=== PATIENT | male | born 1960 | race Caucasian/White ===

== ENCOUNTER 2016-09-01 15:47 | Emergency (ER) ==
[2016-09-01 16:00] VITALS: BP 144/81
[2016-09-01] MEDS ORDERED: ASPIRIN PO STA (16:12)
[2016-09-01] MEDS ORDERED: NS 1,000 ML IV ONE (16:14)
[2016-09-01] MEDS ORDERED: ASPIRIN EC ONE (16:20)
[2016-09-01 16:26] LABS: MANUAL DIFF NEEDED? NO
--- NOTE | 2016-09-01 16:29 | EKG Report ---
Test Performed on : 09/01/2016 4:17:04 PM Test Reason : CP Blood Pressure : / mmHG Vent. Rate : 081 BPM Atrial Rate : 081 BPM P-R Int : 140 ms QRS Dur : 096 ms QT Int : 378 ms P-R-T Axes : 047 073 066 degrees QTc Int : 439 ms Normal sinus rhythm. Normal ECG When compared with ECG of 08-APR-2014 09:46, No significant change was found Unconfirmed Result
[2016-09-01 16:34] LABS: BASO% 0.3 % (0.0-0.8); EOS# 0.09 X1000 (0.0-0.7); EOS% 1.4 % (0.0-10.0); HEMATOCRIT 40.8 % (42.0-52.0); HEMOGLOBIN 13.4 g/dL (14.0-18.0); IMM GRAN# 0.03 X1000 (0.0-0.04); IMM GRAN% 0.5 % (0.0-0.5); LYMPH# 1.38 X1000 (1.2-3.4); LYMPH% 21.3 % (20.5-51.1); MCH 26.3 PG (27-31); MCHC 32.8 g/dL (33-37); MCV 80.2 FL (81-99); MONO# 0.48 X1000 (0.11-0.59); MONO% 7.4 % (1.7-9.3); MPV 9.8 FL (7.4-10.4); NEUT% 69.1 % (42.2-75.2); PLT 188 X1000 (130-400); RBC 5.09 XMIL (4.7-6.1)
--- NOTE | 2016-09-01 16:38 | PROVIDER DOCUMENTATION ---
HPI-Respiratory General - General Source: patient - History of Present Illness-Resp Quality of Pain: reports: none Severity in ED: reports: mild Onset/Duration: reports: 1/2 hour ago Timing: reports: still present Current Respiratory Medication Therapy: Initiated see nurses note Similar Symptoms Previously?: No Recently seen or treated by another doctor?: Yes <Janette Berry - Last Filed: 09/01/16 17:49> <Severiano Wing - Last Filed: 09/01/16 17:57> <Jodie Glez - Last Filed: 09/01/16 18:40> - General Chief Complaint: Shortness of Breath Stated Complaint: POSS BLOOD CLOT Time Seen by Provider: 09/01/16 16:11 Allergies/Adverse Reactions: Patient Allergies Allergy/AdvReac Type Severity Reaction Status Date / Time No Known Allergies Allergy Verified 09/01/16 16:01 Home Medications: Lisinopril 40 mg PO 04/08/14 Aspirin [Aspir-Low] 81 mg PO DAILY 09/01/16 - History of Present Illness-Resp Nature of Presenting Problem: REPORTS TO ER WITH CC OF SOB. SENT OVER FROM [facility] TO BE EVALUATED FOR POSS PE. REPORTS PT O2 SAT WAS 90 AND STARTED HAVING ELEVATED HEART RATE AND BLOOD PRESSURE. STATES BEEN SICK FOR 3 WEEKS BEEN TAKING NEBULIZER TREATMENTS. (Janette Berry) Review of Systems - Adult - REVIEW OF SYSTEMS - ADULT Constitutional: denies: chills, fever, fatique Eyes: reports: no symptoms reported Ears, Nose, Mouth & Throat: reports: no symptoms reported Cardiovascular: denies: chest pain, irregular heart rate, orthopnea, syncope Respiratory: reports: shortness of breath. denies: cough, hemoptysis, pleurisy , wheezing Gastrointestinal: denies: abdominal pain, diarrhea, nausea, vomiting Genitourinary: reports: no symptoms reported Musculoskeletal: reports: no symptoms reported Integumentary: reports: no symptoms reported Neurological: reports: no symptoms reported Psychiatric: reports: no symptoms reported Endocrine: reports: no symptoms reported Hematologic/Lymphatic: reports: no symptoms reported Allergic/Immunologic: reports: no symptoms reported All Other Systems: Reviewed and Negative <Janette Berry - Last Filed: 09/01/16 17:49> Past History - Adult - PAST MEDICAL HISTORY-ADULT Review of Records: reports: Nursing Assessment Review Major Childhood Illnesses: reports: denies history Cardiovascular: reports: HTN Respiratory: reports: denies history Gastrointestinal: reports: GERD, other (hiatal hernia) Genitourinary: reports: denies history Musculoskeletal: reports: denies history Neurological: reports: denies history Psychiatric: reports: denies history Endocrine/Immune: reports: denies history Other Conditions: reports: denies history - PRIOR SURGERIES/PROCEDURES Surgical/Procedure History: reports: none - PRIOR HOSPITALIZATIONS Prior Hospitalizations: reports: for similar symptoms (7 years ago) - IMMUNIZATION STATUS Childhood Immunizations: See Nurse Assessment Flu Vaccine: See Nurse Assessment - FAMILY HISTORY Family History: reviewed, not pertinent - SOCIAL HISTORY Smoking: denies Substance Use: none/never <Janette Berry - Last Filed: 09/01/16 17:49> Physical Exam-General - PHYSICAL EXAM-ADULT Initial Vital Signs Reviewed: Yes - CONSTITUTIONAL General Appearance: appears well, alert, no apparent distress - EYES Eyes: PERRL/EOMI, pink conjunctivae - HEAD, EARS, NOSE, MOUTH & THROAT HENMT: normocephalic/atraumatic, moist mucous membranes, normal ENT inspection - NECK Neck: non-tender, full range of motion, supple, normal inspection - RESPIRATORY Respiratory: chest non-tender, lungs clear, normal breath sounds, no pleuratic chest pain, no respiratory distress, no accessory muscle use. negative: respiratory distress, decreased breath sounds, crackles, rales, rhonchi, stridor , wheezing, dull on percussion, prolonged expiration - CARDIOVASCULAR Cardiovascular: normal peripheral pulses, regular rate, rhythm, no edema, no gallop, no JVD, no murmur - GASTROINTESTINAL (ABDOMEN) Abdominal Exam: normal bowel sounds, non tender, soft - LYMPHATIC Lymphatic: no adenopathy - MUSCULOSKELETAL Back Exam: normal inspection, no CVA tenderness, no vertebral tenderness Extremity: normal range of motion, non-tender, normal gait - SKIN Integumentary: normal color, normal turgor, warm/dry - NEUROLOGIC Neurologic: grossly normal, no motor/sensory deficits - PSYCHIATRIC Psych/Mental Status: normal mood/affect, normal thought content, normal thought process, oriented x 3 <Janette Berry - Last Filed: 09/01/16 17:49> Progress - EKG 1 Time of EKG reading by physician:: 16:17 EKG Read and Signed by:: Severiano Wing EKG Interpretation (*Must complete 3 of following elements*): Normal Rate: 81 Rhythm: NSR [place]: normal QRS: normal RI Interval: normal - CHANGE OF SHIFT REPORT (ED Provider) Report Given and Care Transferred to:: DR. VALLE Time of Transfer: 18:00 Items Pending: Labs, XRAY Results <Janette Berry - Last Filed: 09/01/16 17:49> - CHANGE OF SHIFT REPORT (ED Provider) Report Given and Care Transferred to:: Dr. Islas Time of Transfer: 17:57 Items Pending: CT/MRI Results <Severiano Wing - Last Filed: 09/01/16 17:57> - XRAY 1 XRAY Study: Chest Impression: Normal XRAY Interpretation: NAD: Dr. Neville - CT/MRI 1 CT Study: Angiogram Impression: Normal (No evidence of PE, possible mild pulmonary edema, hepatomegaly/fatty infiltration of liver: Dr. Blanchard) <Jodie Glez - Last Filed: 09/01/16 18:40> - PLAN OF CARE/RESULTS Progress/Plan/Lab Results: Orders Category Date Time Status Cardiac Monitoring DIRECTED Care 09/01/16 16:13 Active Oxygen Therapy- ED Nursing DIRECTED Care 09/01/16 16:13 Active Saline Loc NOW Care 09/01/16 16:13 Active ANGIOGRAM/PULMONARY ARTERIES [CT] Stat Exams 09/01/16 16:14 Ordered CHEST-PORTABLE [RAD] Stat Exams 09/01/16 16:12 Ordered CBC WITH ELECTRONIC DIFF [HEME] Stat Lab 09/01/16 16:20 Completed CK PROFILE [SP CHEM] Stat Lab 09/01/16 16:20 Received COMPREHENSIVE METABOLIC PANEL [CHEM] Stat Lab 09/01/16 16:20 Received D-DIMER PL [COAG] Stat Lab 09/01/16 16:20 Received MAGNESIUM [CHEM] Stat Lab 09/01/16 16:20 Received PRO B-NATRIURETIC PEPTIDE Stat Lab 09/01/16 16:[address] Received [address]IME WITH INR PL [COAG] Stat Lab 09/01/16 16:[address] [COAG] Stat Lab 09/01/16 16:20 Received TROPONIN T Stat Lab 09/01/16 16:20 Received UDS [URINE DRUG SCREEN PL] Stat Lab 09/01/16 16:[address] [URINALYSIS] Stat Lab 09/01/16 16:14 Ordered 0.9% Sodium Chloride Inj [Ns] 1,000 ml Med 09/01/16 16:14 Active IV 999 mls/hr Aspirin Med 09/01/16 16:12 Discontinued 325 mg PO STAT STA Aspirin EC Med 09/01/16 16:20 Discontinued 162 mg .ROUTE .STK-MED ONE EKG [EKG] Stat Ther 09/01/16 16:26 Draft Vital Signs - 24 hr 09/01/16 15:55 Temperature 98.4 F Pulse Rate 81 Respiratory 18 Rate Blood Pressure 144/81 O2 Sat by Pulse 94 L Oximetry Laboratory Tests 09/01/16 09/01/16 09/01/16 16:20 16:20 16:20 WBC RBC Hgb Hct MCV MCH MCHC RDW Std Deviation Plt Count MPV Immature Gran % (Auto) Neut % (Auto) Lymph % (Auto) [place] % (Auto) Eos % (Auto) Baso % (Auto) Immature Gran # (Auto) Neut # (Auto) Lymph # (Auto) [place] # (Auto) Eos # (Auto) Baso # (Auto) PT INR APTT (Factor Assay) D-Dimer Sodium 133 L Potassium 3.9 Chloride 97 L Carbon Dioxide 26 Anion Gap 10 BUN 10 Creatinine 0.6 L Estimated GFR/1.73 m2 > 60 BUN/Creatinine Ratio 17 Glucose 241 H Calculated Osmolality 273 Calcium 9.0 Magnesium 2.1 Total Bilirubin 0.50 AST 35 H ALT 45 H Alkaline Phosphatase 76 Creatine Kinase 69 Troponin T < 0.010 Jhl-X-Bufmxgbrswo Pept 7 Total Protein 6.5 Albumin 4.1 Globulin 2.0 Albumin/Globulin Ratio 2.0 09/01/16 09/01/16 16:20 16:20 WBC 6.49 RBC 5.09 Hgb 13.4 L Hct 40.8 L MCV 80.2 L MCH 26.3 L MCHC 32.8 L RDW Std Deviation 15.1 H Plt Count 188 MPV 9.8 Immature Gran % (Auto) 0.5 Neut % (Auto) 69.1 Lymph % (Auto) 21.3 [place] % (Auto) 7.4 Eos % (Auto) 1.4 Baso % (Auto) 0.3 Immature Gran # (Auto) 0.03 Neut # (Auto) 4.49 Lymph # (Auto) 1.38 [place] # (Auto) 0.48 Eos # (Auto) 0.09 Baso # (Auto) 0.02 PT 13.6 INR 1.01 APTT (Factor Assay) 31.4 D-Dimer < 0.22 L Sodium Potassium Chloride Carbon Dioxide Anion Gap BUN Creatinine Estimated GFR/1.73 m2 BUN/Creatinine Ratio Glucose Calculated Osmolality Calcium Magnesium Total Bilirubin AST ALT Alkaline Phosphatase Creatine Kinase Troponin T Cne-V-Oavvxkbtlbs Pept Total Protein Albumin Globulin Albumin/Globulin Ratio (Janette Berry) plan of care: labs, imaging, medications, EKG, fluids Orders Category Date Time Status Cardiac Monitoring DIRECTED Care 09/01/16 16:13 Active Oxygen Therapy- ED Nursing DIRECTED Care 09/01/16 16:13 Active Saline Loc NOW Care 09/01/16 16:13 Active ANGIOGRAM/PULMONARY ARTERIES [CT] Stat Exams 09/01/16 16:14 Draft CHEST-1 VIEW [RAD] Stat Exams 09/01/16 16:12 Taken ABG [RESP] Routine Lab 09/01/16 17:22 Completed CBC WITH ELECTRONIC DIFF [HEME] Stat Lab 09/01/16 16:20 Completed CK PROFILE [SP CHEM] Stat Lab 09/01/16 16:20 Completed COMPREHENSIVE METABOLIC PANEL [CHEM] Stat Lab 09/01/16 16:20 [address] D-D[address]ER [address] [COAG] Stat Lab 09/01/16 16:20 Completed MAGNESIUM [CHEM] Stat Lab 09/01/16 16:20 Completed PRO B-NATRIURETIC PEPTIDE Stat Lab 09/01/16 16:[address]IME WITH INR [address] [COAG] Stat Lab 09/01/16 16:[address] [COAG] Stat Lab 09/01/16 16:20 Completed TROPONIN T Stat Lab 09/01/16 16:20 Completed UDS [URINE DRUG SCREEN PL] Stat Lab 09/01/16 17:[address] [URINALYSIS] Stat Lab 09/01/16 17:35 Completed URINE MICROSCOPIC [URINALYSIS] Stat Lab 09/01/16 17:35 Completed 0.9% Sodium Chloride Inj [Ns] 1,000 ml Med 09/01/16 16:14 Discontinued IV 999 mls/hr Aspirin Med 09/01/16 16:12 Discontinued 325 mg PO STAT STA Aspirin EC Med 09/01/16 16:20 Discontinued 162 mg .ROUTE .STK-MED ONE EKG [EKG] Stat Ther 09/01/16 16:26 Draft Laboratory Tests 09/01/16 09/01/16 09/01/16 16:20 16:20 16:20 WBC RBC Hgb Hct MCV MCH MCHC RDW Std Deviation Plt Count MPV Immature Gran % (Auto) Neut % (Auto) Lymph % (Auto) [place] % (Auto) Eos % (Auto) Baso % (Auto) Immature Gran # (Auto) Neut # (Auto) Lymph # (Auto) [place] # (Auto) Eos # (Auto) Baso # (Auto) PT INR APTT (Factor Assay) D-Dimer Specimen Type Sample Site pH pCO2 pO2 HCO3 Base Excess Oxyhemoglobin ABG O2 Sat (Calculated) ABG O2 Saturation ABG Carboxyhemoglobin ABG Methemoglobin Merrick Test A-a O2 Difference Total Hemoglobin Lactate Blood Gas Modality FiO2 % Sodium 133 L Potassium 3.9 Chloride 97 L Carbon Dioxide 26 Anion Gap 10 BUN 10 Creatinine 0.6 L Estimated GFR/1.73 m2 > 60 BUN/Creatinine Ratio 17 Glucose 241 H Calculated Osmolality 273 Calcium 9.0 Magnesium 2.1 Total Bilirubin 0.50 AST 35 H ALT 45 H Alkaline Phosphatase 76 Creatine Kinase 69 Troponin T < 0.010 Kno-X-Wizxzsvkvxb Pept 7 Total Protein 6.5 Albumin 4.1 Globulin 2.0 Albumin/Globulin Ratio 2.0 Urine Source Urine Color Urine Clarity Urine pH Ur Specific [place] Urine Protein Urine Ketones Urine Blood Urine Nitrite Urine Bilirubin Urine Urobilinogen Urine Microscopic RBC Urine WBC Urine Microscopic WBC Ur Epithelial Cells Urine Crystals Urine Bacteria Urine Casts Urine Yeast Urine Glucose Urine Opiates Screen Ur Oxycodone Screen Urine Methadone Screen Ur Barbituates Screen Ur Tricyclics Screen Ur Phencyclidine Scrn Ur Amphetamines Screen U Methamphetamines Scrn Urine MDMA Screen U Benzodiazepines Scrn Urine Cocaine Screen U Cannabinoids Screen 09/01/16 09/01/16 09/01/16 16:20 16:20 17:22 WBC 6.49 RBC 5.09 Hgb 13.4 L Hct 40.8 L MCV 80.2 L MCH 26.3 L MCHC 32.8 L RDW Std Deviation 15.1 H Plt Count 188 MPV 9.8 Immature Gran % (Auto) 0.5 Neut % (Auto) 69.1 Lymph % (Auto) 21.3 [place] % (Auto) 7.4 Eos % (Auto) 1.4 Baso % (Auto) 0.3 Immature Gran # (Auto) 0.03 Neut # (Auto) 4.49 Lymph # (Auto) 1.38 [place] # (Auto) 0.48 Eos # (Auto) 0.09 Baso # (Auto) 0.02 PT 13.6 INR 1.01 APTT (Factor Assay) 31.4 D-Dimer < 0.22 L Specimen Type ARTERIAL Sample Site R RADIAL pH 7.40 pCO2 43 pO2 75 HCO3 26.0 Base Excess 1.5 Oxyhemoglobin 93.5 L ABG O2 Sat (Calculated) 17.5 ABG O2 Saturation 97.3 ABG Carboxyhemoglobin 2.80 H ABG Methemoglobin 1.1 Merrick Test YES A-a O2 Difference 21.0 Total Hemoglobin 13.3 Lactate 1.50 Blood Gas Modality ROOM AIR FiO2 % 21.0 Sodium Potassium Chloride Carbon Dioxide Anion Gap BUN Creatinine Estimated GFR/1.73 m2 BUN/Creatinine Ratio Glucose Calculated Osmolality Calcium Magnesium Total Bilirubin AST ALT Alkaline Phosphatase Creatine Kinase Troponin T Rwm-G-Cukdrondlcy Pept Total Protein Albumin Globulin Albumin/Globulin Ratio Urine Source Urine Color Urine Clarity Urine pH Ur Specific [place] Urine Protein Urine Ketones Urine Blood Urine Nitrite Urine Bilirubin Urine Urobilinogen Urine Microscopic RBC Urine WBC Urine Microscopic WBC Ur Epithelial Cells Urine Crystals Urine Bacteria Urine Casts Urine Yeast Urine Glucose Urine Opiates Screen Ur Oxycodone Screen Urine Methadone Screen Ur Barbituates Screen Ur Tricyclics Screen Ur Phencyclidine Scrn Ur Amphetamines Screen U Methamphetamines Scrn Urine MDMA Screen U Benzodiazepines Scrn Urine Cocaine Screen U Cannabinoids Screen 09/01/16 09/01/16 17:35 17:35 WBC RBC Hgb Hct MCV MCH MCHC RDW Std Deviation Plt Count MPV Immature Gran % (Auto) Neut % (Auto) Lymph % (Auto) [place] % (Auto) Eos % (Auto) Baso % (Auto) Immature Gran # (Auto) Neut # (Auto) Lymph # (Auto) [place] # (Auto) Eos # (Auto) Baso # (Auto) PT INR APTT (Factor Assay) D-Dimer Specimen Type Sample Site pH pCO2 pO2 HCO3 Base Excess Oxyhemoglobin ABG O2 Sat (Calculated) ABG O2 Saturation ABG Carboxyhemoglobin ABG Methemoglobin Merrick Test A-a O2 Difference Total Hemoglobin Lactate Blood Gas Modality FiO2 % Sodium Potassium Chloride Carbon Dioxide Anion Gap BUN Creatinine Estimated GFR/1.73 m2 BUN/Creatinine Ratio Glucose Calculated Osmolality Calcium Magnesium Total Bilirubin AST ALT Alkaline Phosphatase Creatine Kinase Troponin T Qyw-R-Sjwbdcxilpl Pept Total Protein Albumin Globulin Albumin/Globulin Ratio Urine Source CLEAN CATCH Urine Color YELLOW Urine Clarity CLEAR Urine pH 6.5 Ur Specific [place] 1.010 Urine Protein NEGATIVE Urine Ketones NEGATIVE Urine Blood NEGATIVE Urine Nitrite NEGATIVE Urine Bilirubin NEGATIVE Urine Urobilinogen NORMAL Urine Microscopic RBC Not Reportable Urine WBC TRACE A Urine Microscopic WBC <10 Ur Epithelial Cells <10 Urine Crystals NONE SEEN Urine Bacteria NEGATIVE Urine Casts NONE SEEN Urine Yeast NONE SEEN Urine Glucose 1+(100 mg/dL) A Urine Opiates Screen NONE DETECTED Ur Oxycodone Screen NONE DETECTED Urine Methadone Screen NONE DETECTED Ur Barbituates Screen NONE DETECTED Ur Tricyclics Screen NONE DETECTED Ur Phencyclidine Scrn NONE DETECTED Ur Amphetamines Screen NONE DETECTED U Methamphetamines Scrn NONE DETECTED Urine MDMA Screen NONE DETECTED U Benzodiazepines Scrn NONE DETECTED Urine Cocaine Screen NONE DETECTED U Cannabinoids Screen NONE DETECTED Vital Signs - 24 hr 09/01/16 15:55 Temperature 98.4 F Pulse Rate 81 Respiratory 18 Rate Blood Pressure 144/81 O2 Sat by Pulse 94 L Oximetry Pt given results and will be d/c home w/o rx to follow up with PCP. Pt verbally understood instructions. PT remained clinically stable throughout the course of the ED stay and will return if symptoms worsen. (Jodie Glez) Departure <Janette Berry - Last Filed: 09/01/16 17:49> <WingSeveriano - Last Filed: 09/01/16 17:57> - Departure Time of Disposition Order: 18:38 Certified Medical Emergency: Emergent <Jodie Glez - Last Filed: 09/01/16 18:40> - Departure DIAGNOSIS: Bronchitis Disposition: HOME 01 Condition: Good Additional Instructions: Follow up with primary care doctor. Return to ED for any new or worsening symptoms. ED Follow Up Instructions: You have been treated by a care provider in the Emergency Department. These instructions are being provided to you so you can have an understanding of how to care for yourself upon discharge. Upon discharge from the Emergency Department, you are responsible for making arrangements for follow-up care by a physician of your choice. Take all prescribed medications as directed. Return to the Emergency Department immediately for any new or worsening symptoms. You may call the Physician Referral phone number at [phone] to obtain a list of Physicians who are taking new patients. Referrals: Katalina Lake MD [Primary Care Provider] - Attestation - Scribe Verification/Attestation Scribe:: Janette Berry Acting as Scribe for:: Severiano Wing Scribe documention review:: This chart was documented by a scribe and accurately reflects the service the provider performed and the decisions made by the provider. <Janette Berry - Last Filed: 09/01/16 17:49> - Scribe Verification/Attestation #2 Shift Change Time: 18:00 Scribe Name: Jodie Glez Acting as Scribe for:: Jerome Neville <Jodie Glez - Last Filed: 09/01/16 18:40> Physician Attestation - Physician Attestation I, the provider, attest to the following statement:: Jerome Neville Physician documentation Attestation:: This documentation recorded by the scribe accurately reflects the service I personally performed and the decisions made by me. <Jodie Glez - Last Filed: 09/01/16 18:40>
[2016-09-01 16:44] LABS: INR 1.01 (0.86-1.15); PROTIME 13.6 Seconds (12.1-15.5); PTT PL 31.4 Seconds (22.6-43.9)
[2016-09-01 16:56] LABS: AGAP 10; ALBUMIN 4.1 g/dL (3.5-5.0); ALKALINE PHOSPHATASE 76 U/L (32-122); BUN 10 mg/dL (8-22); CHLORIDE 97 mmol/L (98-107); CK PROFILE 69 U/L (24-204); COSMO 273; GOT 35 U/L (10-34); GPT 45 U/L (10-44); MAGNESIUM 2.1 mg/dL (1.5-2.7); POTASSIUM 3.9 mmol/L (3.5-5.1); SODIUM 133 mmol/L (136-145); TCO2 26 mmol/L (25-35); TOTAL PROTEIN 6.5 g/dL (6.3-8.3)
[2016-09-01 17:36] LABS: BE 1.5 mmoll (-3.0-3.0); BLOOD TYPE ARTERIAL; DRAW SITE R RADIAL; METHB 1.1 % (0.0-1.5); O2(CT) 17.5 mL/dL (15.0-23.0); PCO2(98.6) 43 mmHg (35-45); PO2(98.6) 75 mmHg (60-100); SAMPLE BLOOD; SAO2 97.3 % (95.0-100.0); THB 13.3 g/dL (11.5-17.4)
[2016-09-01 17:42] LABS: MODALITY ROOM AIR
[2016-09-01 17:43] LABS: URINE SOURCE CLEAN CATCH
[2016-09-01 17:44] LABS: ALLEN TEST YES
[2016-09-01 17:51] LABS: UR AMPHETAMINES QUAL NONE DETECTED (NONE DETECT); UR BARBITUATES QUAL NONE DETECTED (NONE DETECT); UR BENZODIAZEPIN QUAL NONE DETECTED (NONE DETECT); UR CANNABINOIDS QUAL NONE DETECTED (NONE DETECT); UR COCAINE QUAL NONE DETECTED (NONE DETECT); UR MDMA QUAL NONE DETECTED (NONE DETECT); UR METHADONE QUAL NONE DETECTED (NONE DETECT); UR METHAMPHETAMINE QUAL NONE DETECTED (NONE DETECT); UR OPIATES QUAL NONE DETECTED (NONE DETECT); UR OXYCODONE QUAL NONE DETECTED (NONE DETECT); UR PCP QUAL NONE DETECTED (NONE DETECT); UR TCA QUAL NONE DETECTED (NONE DETECT)
[2016-09-01 18:12] LABS: BILIRUBIN URINE NEGATIVE (NEGATIVE); BLOOD URINE NEGATIVE (NEGATIVE); CLARITY CLEAR (CLEAR); COLOR YELLOW; LEUKOCYTES URINE TRACE (NEGATIVE); NITRITE URINE NEGATIVE (NEGATIVE); PH URINE 6.5; PROTEIN URINE NEGATIVE (NEGATIVE); URINE MICROSCOPIC NEEDED? YES; UROBILINOGEN URINE NORMAL
--- NOTE | 2016-09-01 18:18 | Diag Imaging Result Document ---
PROCEDURE NAME: ANGIOGRAM/PULMONARY ARTERIES - 09/01/2016 CT ANGIOGRAM PULMONARY ARTERIES WITH CONTRAST: FINDINGS: Exam performed with intravenous contrast. Axial and reformatted coronal MIP images are obtained. A dose reduction protocol was used. There are no filling defects identified in the pulmonary arteries. There is no indication of aortic dissection. There is borderline cardiomegaly. The lungs are mildly hazy, which may relate to mild edema. There is no dense consolidation, pleural effusion, or pneumothorax identified. There is a right upper lobe calcified granuloma from old granulomatous disease. There is hepatomegaly with fatty infiltration of the visualized portion of the liver noted. IMPRESSION: 1. No evidence of pulmonary embolism. 2. Borderline cardiomegaly. Hazy bilateral pulmonary opacities, possibly related to mild pulmonary edema. No focal pneumonia. 3. Hepatomegaly with fatty infiltration of the liver noted.
[2016-09-01 18:29] LABS: URINE CAST NONE SEEN /LPF; URINE CRYSTAL NONE SEEN /HPF; URINE EPITHELIAL CELLS <10 /HPF (<10); URINE WBC <10 /HPF (<10)
--- NOTE | 2016-09-02 08:37 | Diag Imaging Result Document ---
PROCEDURE NAME: CHEST-1 VIEW - 09/01/2016 CHEST, SINGLE VIEW: INDICATION: Chest pain. COMPARISON: 04/08/2014. FINDINGS: There is cardiomegaly and evidence of previous granulomatous infection. The pulmonary vasculature is not congested. No infiltrates or effusions are demonstrated. IMPRESSION: No acute abnormalities. Cardiomegaly.
== END 2016-09-01 18:55 | disposition home or self-care (01) ==
LOC: P.ED 15:47
DX: J40 Bronchitis, not specified as acute or chronic (principal); R06.02 Shortness of breath; I10 Essential (primary) hypertension; Z79.82 Long term (current) use of aspirin; Z79.899 Other long term (current) drug therapy
CPT/HCPCS: 71010; 71275; 80053; 81001; 82550; 82805; 83735; 83880; 84484; 85025; 85379; 85610; 85730; 93005; G0477; J7030; Q9967